=== PATIENT | female | born 2000 | race Caucasian/White ===

== ENCOUNTER 2021-08-04 12:21 | Emergency (ER) | payer BC ==
[~2021-08-04] VITALS: Ht 152.4 cm; Wt 52.7 kg
--- NOTE | 2021-08-04 14:41 | PHYS DOC ---
Past History Past Surgical History: No Surgical History (YAYA MERCADO APRN) Alcohol Use: None (YAYA MERCADO APRN) General Adult EDM: Chief Complaint: VAGINAL PROBLEM HPI: HPI: Patient is a 20-year-old female who presents with increase in discharge. Patient denies itching or odor. Patient states "I think I lost my mucous plug". Patient states her last menstrual period was 06/03. Patient states "I had a miscarriage in March and I had discharge like this before my last miscarriage". Patient does report some mild cramping. Denies bleeding, nausea/vomiting/diarrhea. G2, P0 (YAYA MERCADO APRN) Review of Systems: Review of Systems: Constitutional: Denies fever or chills Eyes: Denies change in visual acuity HENT: Denies nasal congestion or sore throat Respiratory: Denies cough or shortness of breath Cardiovascular: Denies chest pain or edema GI: Reports mild cramping. Denies nausea/vomiting/diarrhea. /vaginal: Denies dysuria. Reports increase in thick, discharge. Denies odor, pruritus. Musculoskeletal: Denies back pain or joint pain Integument: Denies rash Neurologic: Denies headache, focal weakness or sensory changes Endocrine: Denies polyuria or polydipsia Lymphatic: Denies swollen glands Psychiatric: Denies depression or anxiety (YAYA MERCADO APRN) Allergies: Allergies: Allergies Coded Allergies Type Severity Reaction Last Updated Verified No Known Drug Allergies 08/04/21 No (YAYA MERCADO APRN) Physical Exam: PE: Constitutional: Well developed, well nourished, no acute distress, non-toxic appearance. [] HENT: Normocephalic, atraumatic, bilateral external ears normal, oropharynx moist, no oral exudates, nose normal. [] Eyes: PERRLA, EOMI, conjunctiva normal, no discharge. [] Neck: Normal range of motion, no tenderness, supple, no stridor. [] Cardiovascular:Heart rate regular rhythm, no murmur [] Lungs & Thorax: Bilateral breath sounds clear to auscultation [] Abdomen: Bowel sounds normal, soft, no tenderness, no masses, no pulsatile masses. [] Skin: Warm, dry, no erythema, no rash. [] Back: No tenderness, no CVA tenderness. [] Extremities: No tenderness, no cyanosis, no clubbing, ROM intact, no edema. [] Neurologic: Alert and oriented X 3, normal motor function, normal sensory function, no focal deficits noted. [] Psychologic: Affect normal, judgement normal, mood normal. [] (YAYA MERCADO APRN) Current Patient Data: Labs: Laboratory Tests Test 08/04/21 13:05 POC Urine HCG, Qualitative hcg positive (Negative) Vital Signs: Vital Signs Date Time Temp Pulse Resp B/P (MAP) Pulse Ox O2 Delivery O2 Flow Rate FiO2 08/04/21 12:40 98.3 70 20 105/62 99 Room Air (YAYA MERCADO APRN) EKG: EKG: [] (YAYA MERCADO APRN) Radiology/Procedures: Radiology/Procedures: []INDICATION: Reason: cramping / Spl. Instructions: / History: COMPARISON: None. TECHNIQUE: Grayscale and color ultrasound images of the pelvis. Transabdominal and transvaginal images obtained. Transvaginal images were needed to better visualize structures that were limited on transabdominal imaging. FINDINGS: Uterus: 91 x 69 x 53 mm. Intrauterine gestational sac is seen and unremarkable. Too early in gestation to adequately assess placenta. pole seen. CRL: 16 mm. Estimated Gestational Age: 8 weeks and 0 days Heart Beat: 165 Right Ovary: 39 x 21 x 19 mm. Left Ovary: 23 x 17 x 15 mm. Vascular flow identified to bilateral ovaries. Masslike structure at the right ovary measuring 23 x 17 mm. Internal vascularity is seen. Small free fluid in the pelvis. IMPRESSION: * Intrauterine is identified with a positive heartbeat and estimated gestational age of 8 weeks and 0 days with a positive heartbeat. Recommend routine anomaly screening at 18-22 weeks. * Apparent soft tissue mass at the right adnexa. This can be followed later in to ensure no growth and is either exophytic from the right ovary or abutting it. Electronically signed by: Roque Schumacher MD (08/04/2021 2:49 PM) [id number] (YAYA MERCADO APRN) Heart Score: C/O Chest Pain: No Risk Factors: Risk Factors: DM, Current or recent (<one month) smoker, HTN, HLP, family history of CAD, obesity. Risk Scores: Score 0 - 3: 2.5% MACE over next 6 weeks - Discharge Home Score 4 - 6: 20.3% MACE over next 6 weeks - Admit for Clinical Observation Score 7 - 10: 72.7% MACE over next 6 weeks - Early Invasive Strategies (YAYA MERCADO APRN) Course & Med Decision Making: Course & Med Decision Making Pertinent Labs and Imaging studies reviewed. (See chart for details) [] 20-year-old female presents with an increase in discharge. Patient's last menstrual period was 06/03. Denies pain or bleeding. Denies itching or odor. Patient states that she had a miscarriage in March and felt like she had an increase in discharge prior to that miscarriage. Transvaginal ultrasound ordered. Ultrasound shows intrauterine is identified with a positive heartbeat and estimated gestational age of 8 weeks and 0 days with a positive heartbeat. Recommend routine anomaly screening at 18-22 weeks.\\ Wet prep is positive for bacterial vaginosis. Went over results with patient. Symptoms are most likely related to BV. Patient placed on Flagyl. (YAYA MERCADO APRN) Course & Med Decision Making I was the Attending physician on the above date of service of this patient. This patient was evaluated, examined, treated, and dispositioned from the emergency department by the mid-level practitioner. Although I was working at the time , no assistance was requested. Electronically signed, Renee Piedra DO (RENEE PIEDRA DO) Oral Disclaimer: Oral Disclaimer: This electronic medical record was generated, in whole or in part, using a voice recognition dictation system. (YAYA MERCADO APRN) Departure Departure: Impression: Primary Impression: Bacterial vaginosis in Disposition: HOME / SELF CARE / HOMELESS Condition: STABLE Referrals: PCP,NO (PCP) Patient Instructions: Bacterial Vaginosis, [id number] Additional Instructions: You were seen in the emergency room for increase in vaginal discharge during . Your ultrasound was unremarkable. I am sending you home with a copy of your ultrasound report to give to your OB. Scripts Metronidazole (METRONIDAZOLE) 250 Mg Tablet 1 TAB PO TID for BV for 7 Days, #21 TAB Prov: YAYA MERCADO APRN 08/04/21 YAYA MERCADO APRN Aug 04, 2021 14:41 RENEE PIEDRA DO Aug 05, 2021 07:25
--- NOTE | 2021-08-04 14:51 | RAD ---
INDICATION: Reason: cramping / Spl. Instructions: / History: COMPARISON: None. TECHNIQUE: Grayscale and color ultrasound images of the pelvis. Transabdominal and transvaginal imag es obtained. Transvaginal images were needed to better visualize structures that were limited on tra nsabdominal imaging. FINDINGS: Uterus: 91 x 69 x 53 mm. Intrauterine gestational sac is seen and unremarkable. Too early in gestation to adequately assess p lacenta. pole seen. CRL: 16 mm. Estimated Gestational Age: 8 weeks and 0 days Heart Beat: 165 Right Ovary: 39 x 21 x 19 mm. Left Ovary: 23 x 17 x 15 mm. Vascular flow identified to bilateral ovaries. Masslike structure at the right ovary measuring 23 x 17 mm. Internal vascularity is seen. Small free fluid in the pelvis. IMPRESSION: * Intrauterine is identified with a positive heartbeat and estimated gestational age of 8 weeks and 0 days with a positive heartbeat. Recommend routine anomaly screening at 18-22 weeks. * Apparent soft tissue mass at the right adnexa. This can be followed later in to ensure n o growth and is either exophytic from the right ovary or abutting it. Electronically signed by: Roque Schumacher MD (08/04/2021 2:49 PM) [id number]
[2021-08-04] MEDS ORDERED: METR-111 PO (16:06)
[2021-08-04 16:10] VITALS: BP 114/52
[2021-08-04 16:14] LABS: BACTERIA,URINE FEW /HPF (0-FEW); BILIRUBIN,URINE NEG (NEG); CLARITY,URINE CLEAR; COLOR,URINE YELLOW; GLUCOSE,URINE NEG (NEG); NITRITE,URINE NEG (NEG); RBC,URINE 0 /HPF (0-2); SQUAMOUS EPITHELIAL CELL,UR FEW /LPF; UROBILINOGEN,URINE 0.2 mg/dL (0.2 mg/dL); WBC,URINE 0 /HPF (0-4)
[2021-08-06 15:08] LABS: CHLAMYDIA PROBE Negative (Negative)
== END 2021-08-04 16:10 | disposition home or self-care (01) ==
LOC: ER 12:21
DX: O23.591 Infection of other part of genital tract in pregnancy, first trimester (principal); N76.0 Acute vaginitis; B96.89 Other specified bacterial agents as the cause of diseases classified elsewhere; Z3A.08 8 weeks gestation of pregnancy
CPT/HCPCS: 76801; 76817; 81001; 81025; 87491; 87591; 99284; Q0111